=== PATIENT | male | born 1960 ===

== ENCOUNTER → 2023-01-22 18:15 | Outpatient (CLI) | payer BC, SELFPAY ==
--- NOTE | 2023-01-22 | DI.RAD_ITS ---
Exam(s) XR RIBS RT W PA LAT CHEST CLINICAL HISTORY: RT RIB PAIN R07.81 FALL YESTERDAY, ? BONY ABNORMALITY OR LUNG INJURY. COMPARISON: No exams were available for comparison TECHNIQUE:: PA and lateral views of the chest and four views of the right ribs were performed. FINDINGS: LUNGS:Clear. No pleural abnormality seen. HEART: Normal. MEDIASTINUM: Normal. BONES: No displaced rib fracture is seen. No bony destructive lesion is seen. OTHER FINDINGS: None. IMPRESSION: 1. Unremarkable radiographic appearance of the right ribs. 2. No acute pulmonary findings.
--- NOTE | 2023-01-22 17:38 | DI.VRAD_ITS ---
PROCEDURE INFORMATION: Exam: XR Right Ribs Exam date and time: 01/22/2023 5:06 PM Age: 62 years old Clinical indication: Pain; Right-sided; Other: Fall TECHNIQUE: Imaging protocol: Radiologic exam of the right ribs. Views: 2 views. Total images: 6 COMPARISON: No relevant prior studies available. FINDINGS: Bones/joints: Bone mineralization is normal. No acute fracture or dislocation. Joint spaces appear normal. Soft tissues: Soft tissues appear normal. No radiopaque foreign bodies. IMPRESSION: No acute fracture or dislocation. PROCEDURE INFORMATION: Exam: XR Chest Exam date and time: 01/22/2023 5:06 PM Age: 62 years old Clinical indication: Pain; Right-sided; Other: Fall TECHNIQUE: Imaging protocol: Radiologic exam of the chest. Views: 2 views. COMPARISON: No relevant prior studies available. FINDINGS: Lungs: Lungs appear clear. No visible consolidation. No pulmonary masses. Pulmonary vascularity is normal. Pleural spaces: No pleural effusion or pneumothorax. Heart/Mediastinum: Heart size is normal. Bones/joints: No acute osseous abnormalities. IMPRESSION: No acute cardiopulmonary disease. Dictated and Authenticated by: Trinity Ponce MD. Ordering:FAVIAN Guerra MD
== END ==
PROVIDERS: Visit Provider Physician Assistant Medical
DX: W19.XXXA Unspecified fall, initial encounter (principal); R07.81 Pleurodynia
CPT/HCPCS: 71046; 71100

== ENCOUNTER 2024-08-10 00:51 | Outpatient (CLI) | payer BC, SELFPAY ==
--- NOTE | 2024-08-10 15:14 | DI.RAD_ITS ---
Exam(s) XR FOOT LT COMPLETE EXAM: XR FOOT LT COMPLETE CLINICAL HISTORY: bilateral foot pain,M79.672. TECHNIQUE: 2D digital imaging was performed of the left foot. Three images were obtained. AP, obli que and lateral views were obtained. COMPARISON: There are no priors for comparison. FINDINGS: BONES: No acute fracture is present. No bony destructive lesion is seen. JOINTS: No dislocation present. Joint spaces are well maintained. SOFT TISSUE: Normal. IMPRESSION: Unremarkable radiographs of the left foot. DATA REPOSITORY: RADIATION DOSE DELIVERED:
--- NOTE | 2024-08-10 15:14 | DI.RAD_ITS ---
Exam(s) XR FOOT RT COMPLETE EXAM: XR FOOT RT COMPLETE CLINICAL HISTORY: Bilateral foot pain,M79.671. TECHNIQUE: 2D digital imaging was performed of the right foot. Three images were obtained. AP, obl ique and lateral views were obtained. COMPARISON: No exams were available for comparison FINDINGS: BONES: No acute fracture is present. No bony destructive lesion is seen. Benign-appearing area of scl erosis is seen in the 1st metatarsal bone. There is a small cyst at the head of the 1st metatarsal. JOINTS: No dislocation present. Joint spaces are well maintained with mild narrowing at the 1st inter phalangeal joint. SOFT TISSUE: Normal. IMPRESSION: No acute abnormality. DATA REPOSITORY: RADIATION DOSE DELIVERED:
== END 2024-08-10 01:11 ==
LOC: DI 00:51
PROVIDERS: Visit Provider Podiatrist
DX: M79.671 Pain in right foot (principal); M79.672 Pain in left foot
CPT/HCPCS: 73630